=== PATIENT | male | born 1990 | race Caucasian/White ===

== ENCOUNTER 2025-04-27 12:30 | Emergency (ER) | payer OTHER ==
[~2025-04-27] VITALS: Ht 182.9 cm; Wt 90.7 kg
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
[2025-04-27 14:51] VITALS: BP 151/73; PULSE 76; RESP 18; TEMP 97.9; O2SAT 98
== END 2025-04-27 14:53 | disposition home or self-care (01) ==
LOC: EDH 12:30
DX: T59.811A Toxic effect of smoke, accidental (unintentional), initial encounter (principal); T14.90XA Injury, unspecified, initial encounter; Y99.8 Other external cause status
CPT/HCPCS: 36415; 82375; 99283